=== PATIENT | male | born 1965 | race Caucasian/White ===

== ENCOUNTER 2017-02-04 21:43 | Emergency (ER) | payer OTHER ==
[~2017-02-04 21:43] MED LIST: HYDR-3713 PO
[2017-02-04 22:03] VITALS: BP 137/80
[2017-02-04] MEDS ORDERED: SERT-138 (22:28)
[2017-02-04] MEDS ORDERED: LISI10TA4 (22:28)
[2017-02-04] MEDS ORDERED: SIMV40TA2 (22:28)
[2017-02-04] MEDS ORDERED: NITROGLYCERIN 0.4 MG SUBL TABLET SL PRN (22:30)
[2017-02-04] MEDS ORDERED: ASPIRIN 81 MG CHEW TABLET PO ONE (22:30)
[2017-02-04 22:56] LABS: BASO % 0.7 % (0.0-1.0); EOS # 0.1 K/mm3 (0.0-0.50); EOS % 2.3 % (0.0-3.0); LARGE UNSTAINED CELL # 0.1 K/mm3 (0.0-0.4); LARGE UNSTAINED CELL % 2.7 % (0.0-4.0); LYMPH # 1.4 K/mm3 (1.5-4.5); LYMPH % 27.8 % (24.0-44.0); MEAN CORPUSCULAR HEMOGLOBIN 30.6 pg (27.0-33.0); MEAN CORPUSCULAR HGB CONC 34.5 g/dl (32.0-36.5); MEAN CORPUSCULAR VOLUME 88.8 fl (80.0-96.0); MONO # 0.3 K/mm3 (0.0-0.8); MONO % 5.3 % (0.0-5.0); NEUTROPHILS % 61.2 % (36.0-66.0); PLATELET COUNT, AUTOMATED 206 k/mm3 (150-450); RED CELL DISTRIBUTION WIDTH 12.6 % (11.5-14.5)
[2017-02-04 23:02] LABS: INR 0.92
[2017-02-04 23:24] LABS: ANION GAP 10 MEQ/L (8-16); BLOOD UREA NITROGEN 4 MG/DL (7-18); CALCIUM LEVEL 8.2 MG/DL (8.5-10.1); CARBON DIOXIDE LEVEL 28 MEQ/L (21-32); CHLORIDE LEVEL 89 MEQ/L (98-107); CREATININE FOR GFR 0.56 MG/DL (0.70-1.30); GLOMERULAR FILTRATION RATE > 60.0 (>56); GLUCOSE, FASTING 92 MG/DL (70-105); POTASSIUM SERUM 3.9 MEQ/L (3.5-5.1); SODIUM LEVEL 127 MEQ/L (136-145)
[2017-02-04] MEDS ORDERED: ASPI81TA85 PO (23:37)
[2017-02-04] MEDS ORDERED: IBUPROFEN 600 MG TAB PO ONE (23:45)
--- NOTE | 2017-02-05 08:17 | REP ---
Clinical: Chest pain . Comparison: 10/30/2011 . Technique: PA and lateral. Findings: The mediastinum and cardiac silhouette are normal. The lung wilson are clear and without acute consolidation, effusion, or pneumothorax. The skeletal structures are intact and normal. Impression: 1. No acute cardiopulmonary process. Signed by El Clancy MD 02/05/2017 08:08 A
--- NOTE | 2017-02-05 09:28 | ECGEPIP ---
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
== END 2017-02-04 23:58 | disposition home or self-care (01) ==
LOC: EDBD 21:43 → M ED 22:21
DX: R07.89 Other chest pain (principal); I51.9 Heart disease, unspecified; Z95.5 Presence of coronary angioplasty implant and graft; F17.200 Nicotine dependence, unspecified, uncomplicated; Z79.899 Other long term (current) drug therapy

== ENCOUNTER 2017-03-01 21:52 | Emergency (ER) | payer OTHER ==
[~2017-03-01 21:52] MED LIST changes: +ASPI81TA85 PO; +LISI10TA4; +SERT-138; +SIMV40TA2
[2017-03-01 22:52] LABS: VENOUS O2 SATURATION 44.3 % (60.0-80.0); VENOUS PARTIAL PRESSURE CO2 49.8 mmHg (38.0-50.0); VENOUS PARTIAL PRESSURE O2 23.3 mmHg (30.0-50.0); VENOUS STANDARD HCO3 24.9 MEQ/L; VENOUS TOTAL CO2 29.7 MEQ/L (24.0-28.0)
[2017-03-01 22:59] LABS: MEAN CORPUSCULAR HEMOGLOBIN 30.7 pg (27.0-33.0); MEAN CORPUSCULAR HGB CONC 34.3 g/dl (32.0-36.5); MEAN CORPUSCULAR VOLUME 89.4 fl (80.0-96.0); WHITE BLOOD COUNT 8.9 K/mm3 (4.0-10.0)
[2017-03-01 23:14] LABS: METHADONE URINE NEGATIVE (NEGATIVE)
[2017-03-01 23:25] LABS: ALBUMIN/GLOBULIN RATIO 1.08 (1.00-1.93); ALKALINE PHOSPHATASE 80 U/L (45-117); ALT/SGPT 33 U/L (12-78); ANION GAP 7 MEQ/L (8-16); AST/SGOT 27 U/L (15-37); BILIRUBIN,DIRECT 0.1 MG/DL (0.0-0.2); BILIRUBIN,TOTAL 0.3 MG/DL (0.2-1.0); BLOOD UREA NITROGEN 5 MG/DL (7-18); CALCIUM LEVEL 8.4 MG/DL (8.5-10.1); CARBON DIOXIDE LEVEL 30 MEQ/L (21-32); CHLORIDE LEVEL 87 MEQ/L (98-107); CREATININE FOR GFR 0.76 MG/DL (0.70-1.30); GLOMERULAR FILTRATION RATE > 60.0 (>56); GLUCOSE, FASTING 104 MG/DL (70-105); POTASSIUM SERUM 3.7 MEQ/L (3.5-5.1); SODIUM LEVEL 124 MEQ/L (136-145); TOTAL PROTEIN 7.7 GM/DL (6.4-8.2)
[2017-03-02 09:06] VITALS: BP 142/79
--- NOTE | 2017-03-02 20:54 | ECGEPIP ---
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
== END 2017-03-02 09:10 | disposition home or self-care (01) ==
LOC: M ED 22:40
DX: F43.0 Acute stress reaction (principal); F17.200 Nicotine dependence, unspecified, uncomplicated; Z79.82 Long term (current) use of aspirin; Z79.899 Other long term (current) drug therapy

== ENCOUNTER → 2018-01-18 | Outpatient (CLI) | payer OTHER | LOC: M OUTALCOH 11:28 | DX: F10.20 Alcohol dependence, uncomplicated (principal) ==

== ENCOUNTER 2018-01-31 11:00 | Outpatient (RCR) | payer OTHER | END 2018-02-11 | LOC: M OUTALCOH 02-08 16:00 | DX: F10.20 Alcohol dependence, uncomplicated (principal); F17.200 Nicotine dependence, unspecified, uncomplicated ==

== ENCOUNTER 2018-02-15 14:48 | Outpatient (RCR) | payer OTHER, SELFPAY | END 2018-03-13 | LOC: M OUTALCOH 02-22 16:00 | DX: F10.20 Alcohol dependence, uncomplicated (principal); F17.200 Nicotine dependence, unspecified, uncomplicated | CPT/HCPCS: 90834 ==

== ENCOUNTER 2018-03-15 09:29 | Outpatient (RCR) | payer OTHER | END 2018-04-13 | LOC: M OUTALCOH 03-22 16:00 | DX: F10.20 Alcohol dependence, uncomplicated (principal); F17.200 Nicotine dependence, unspecified, uncomplicated ==

== ENCOUNTER → 2020-12-17 | Outpatient (CLI) | payer MEDICAID, OTHER, SELFPAY ==
[~2020-12-17] MED LIST changes: -ASPI81TA85 PO; +ASPI81TA86 PO; +LISI10TA22; -LISI10TA4; -SIMV40TA2; +SIMV40TA20
== END ==
LOC: M OUTALCOH 09:51
PROVIDERS: ATTEND Psychiatry & Neurology Psychiatry
DX: Z03.89 Encounter for observation for other suspected diseases and conditions ruled out (principal)

== ENCOUNTER 2020-12-22 13:11 | Outpatient (RCR) | payer MEDICAID, OTHER, SELFPAY | END 2021-01-11 | disposition still patient (30) | LOC: M OUTALCOH 13:11 | PROVIDERS: ATTEND Psychiatry & Neurology Psychiatry | DX: F10.21 Alcohol dependence, in remission (principal); F17.200 Nicotine dependence, unspecified, uncomplicated ==

== ENCOUNTER 2024-03-20 12:50 | Emergency (ER) | payer MEDICAID, OTHER ==
[~2024-03-20] VITALS: Ht 175.3 cm; Wt 75.1 kg
[2024-03-20 12:51] VITALS: BP 150/90; TEMP 97.8; O2SAT 99
== END 2024-03-20 17:45 | disposition left against medical advice (07) ==
LOC: M ED 12:50
DX: Z53.21 Procedure and treatment not carried out due to patient leaving prior to being seen by health care provider (principal)

== ENCOUNTER → 2024-09-20 | Outpatient (REF) | payer OTHER | LOC: M SFHCPLAZ 13:24 | PROVIDERS: ATTEND Nurse Practitioner Family | DX: Z13.1 Encounter for screening for diabetes mellitus (principal) ==

== ENCOUNTER → 2024-09-20 | Outpatient (CLI) | payer OTHER ==
[2024-09-20 12:55] LABS: BASO % 0.5 % (0.0-1.0); EOS # 0.1 10^3/uL (0.0-0.5); EOS % 0.7 % (0.0-3.0); HEMATOCRIT 45.5 % (42.0-52.0); HEMOGLOBIN 15.6 g/dl (13.5-17.5); LYMPH # 1.6 10^3/uL (1.5-5.0); MEAN CORPUSCULAR HEMOGLOBIN 30.1 pg (27.0-33.0); MEAN CORPUSCULAR HGB CONC 34.3 g/dl (32.0-36.5); MEAN CORPUSCULAR VOLUME 87.8 fl (80.0-96.0); MONO # 0.5 10^3/uL (0.0-0.8); MONO % 6.8 % (2.0-8.0); NEUTROPHILS # 5.3 10^3/uL (1.5-8.5); NEUTROPHILS % 70.6 % (36.0-66.0); PLATELET COUNT, AUTOMATED 295 10^3/uL (150-450); RED BLOOD COUNT 5.18 10^6/uL (4.30-6.10); WHITE BLOOD COUNT 7.5 10^3/uL (4.0-10.0)
[2024-09-20 13:00] LABS: PSA SCREENING 0.81 NG/ML (< 4.00)
[2024-09-20 13:02] LABS: CHOLESTEROL RISK RATIO 6.2 (<5); HDL CHOLESTEROL 43.7 MG/DL (>40); LDL CHOLESTEROL 202.1 MG/DL (<100); NON-HDL-C 227.3 MG/DL
[2024-09-20 13:04] LABS: FREE T4 1.21 NG/DL (0.89-1.76)
[2024-09-20 13:05] LABS: THYROID STIMULATING HORMONE 0.982 uIU/ML (0.55-4.78)
[2024-09-20 13:28] LABS: HEMOGLOBIN A1c 5.2 % (4.0-6.0)
== END ==
LOC: M PLALAB 09:59
PROVIDERS: ATTEND Nurse Practitioner Family
DX: M47.812 Spondylosis without myelopathy or radiculopathy, cervical region (principal); M19.012 Primary osteoarthritis, left shoulder; R20.0 Anesthesia of skin; R53.83 Other fatigue; Z13.1 Encounter for screening for diabetes mellitus; Z13.220 Encounter for screening for lipoid disorders

== ENCOUNTER 2024-10-31 07:00 | Outpatient (RCR) | payer OTHER | END 2024-11-13 | LOC: M PT 07:00 | PROVIDERS: ATTEND Nurse Practitioner Family | DX: M47.22 Other spondylosis with radiculopathy, cervical region (principal); M19.012 Primary osteoarthritis, left shoulder ==

== ENCOUNTER 2024-11-28 10:00 | Outpatient (RCR) | payer OTHER | END 2024-12-14 | LOC: M PT 10:00 | PROVIDERS: ATTEND Nurse Practitioner Family | DX: M47.22 Other spondylosis with radiculopathy, cervical region (principal); M19.012 Primary osteoarthritis, left shoulder ==

== ENCOUNTER → 2024-12-07 | Outpatient (CLI) | payer OTHER | LOC: M RAD 16:21 | PROVIDERS: ATTEND Nurse Practitioner Family | DX: Z12.2 Encounter for screening for malignant neoplasm of respiratory organs (principal); R91.1 Solitary pulmonary nodule; F17.210 Nicotine dependence, cigarettes, uncomplicated ==

== ENCOUNTER → 2025-01-09 | Outpatient (CLI) | payer OTHER | LOC: M PLAIMG 13:00 | PROVIDERS: ATTEND Orthopaedic Surgery | DX: M25.512 Pain in left shoulder (principal) ==

== ENCOUNTER → 2025-01-23 | Outpatient (CLI) | payer OTHER | LOC: M PLAIMG 12:10 | PROVIDERS: ATTEND Orthopaedic Surgery | DX: Z53.9 Procedure and treatment not carried out, unspecified reason (principal) ==